=== PATIENT | male | born 1960 | race Caucasian/White ===

== ENCOUNTER 2018-06-12 22:26 | Emergency (ER) | payer OTHER ==
[~2018-06-12] VITALS: Ht 180.3 cm; Wt 115.9 kg
[2018-06-12] MEDS ORDERED: CORTSOL AS (22:41)
[2018-06-12] MEDS ORDERED: CHL25 PO (22:41)
[2018-06-12] MEDS ORDERED: ATEN100T PO (22:41)
[2018-06-12] MEDS ORDERED: IRBE150T51 PO (22:41)
[2018-06-12] MEDS ORDERED: AMLO-512 PO (22:41)
[2018-06-13] MEDS ORDERED: IBUPROFEN 600 MG TABLET PO ONE (00:45)
[2018-06-13] MEDS ORDERED: TraMADol HCL 50 MG TABLET PO ONE (00:45)
[2018-06-13 00:47] VITALS: BP 142/88
== END 2018-06-13 00:54 | disposition home or self-care (01) ==
LOC: EMS 22:27
DX: H60.92 Unspecified otitis externa, left ear (principal); I10 Essential (primary) hypertension; Z79.899 Other long term (current) drug therapy
CPT/HCPCS: 99283